=== PATIENT | male | born 1995 | race Two or more races ===

== ENCOUNTER 2018-12-14 16:25 | Emergency (ER) | payer BC ==
[~2018-12-14] VITALS: Ht 182.9 cm; Wt 72.6 kg
[2018-12-14 16:32] VITALS: BP 135/85
[2018-12-14] MEDS ORDERED: CEFTRIAXONE 1 G VIAL ONE (16:52)
[2018-12-14] MEDS ORDERED: AZITHROMYCIN 250 MG TABLET ONE (16:52)
[2018-12-14] MEDS ORDERED: LIDOCAINE /MPF 1% VIAL 5 ML VIAL ONE (16:52)
[2018-12-14 16:56] LABS: APPEARANCE,URINE Clear (CLEAR); BILIRUBIN,URINE Negative (NEGATIVE); BLOOD, URINE Negative Ery/uL (NEGATIVE); COLOR,URINE Yellow (YELLOW); KETONES,URINE Trace (NEGATIVE); LEUKOCYTE ESTERASE ,URINE Negative (NEGATIVE); NITRITE, URINE Negative (NEGATIVE); PH,URINE 5.5 (5.0-8.0); PROTEIN,URINE Negative (NEGATIVE); UGLUCOSE Negative (NEGATIVE); UROBILINOGEN,URINE 0.2 EU/dL (0.2)
[2018-12-14] MEDS ORDERED: AZITHROMYCIN 250 MG TABLET PO ONE (17:00)
[2018-12-14] MEDS ORDERED: CEFTRIAXONE 500 MG VIAL IM ONE (17:00)
[2018-12-14 17:15] LABS: BACTERIA,URINE Few /HPF (None Seen); RBC,URINE 0-2 /HPF (0-2); SQUAMOUS EPITHELIAL CELL,UR Rare /HPF (None Seen); WBC,URINE 0-2 /HPF (0-3)
== END 2018-12-14 17:07 | disposition home or self-care (01) ==
LOC: ER 16:25
DX: N49.2 Inflammatory disorders of scrotum (principal); R30.0 Dysuria; R30.9 Painful micturition, unspecified; Z20.2 Contact with and (suspected) exposure to infections with a predominantly sexual mode of transmission
CPT/HCPCS: 81001; 87086; 87491; 87591; 96372; 99283; J0696; J3490; 81000-TC